=== PATIENT | male | born 1960 | race Caucasian/White ===

== ENCOUNTER 2016-08-20 04:39 | Emergency (ER) | payer OTHER ==
[~2016-08-20] VITALS: Ht 188 cm; Wt 74.8 kg
[~2016-08-20 04:39] MED LIST: ATENOLOL 25 MG25 M1 PO; COZAAR 50 MG TA50 M2 PO; CYCLOSPORINE PO; MYCOPHENOLATE500 MG PO; PREDNISONE 5 MG5 M1 PO; ZANTAC 150MG T150 MG PO
[2016-08-20] MEDS ORDERED: ZYRTEC10 M5 PO (04:50)
[2016-08-20 05:06] LABS: ABSOLUTE NEUTROPHILS 6.7 thou/uL (1.4-8.2); BASOPHILS 0.7 % (0.0-2.0); EOSINOPHILS 0.4 % (0.0-3.0); HEMATOCRIT 31.9 % (42.0-52.0); HEMOGLOBIN 11.1 gm/dL (14.0-18.0); LYMPHOCYTES 12.4 % (24.0-44.0); MCH 30.9 pg (26.0-34.0); MCHC 34.9 g/dL (28.0-37.0); MCV 88.5 fL (80.0-100.0); MONOCYTES 6.8 % (1.0-8.0); PLATELET COUNT 177 thou/uL (150-400); POLYS 79.7 % (36.0-66.0); RDW 13.3 % (10.5-14.5); WBC 8.4 thou/uL (4.0-11.0)
[2016-08-20 05:11] LABS: MANUAL DIFF NO
[2016-08-20 05:15] LABS: CALCIUM 9.6 mg/dL (8.5-10.1); CREATININE 1.5 mg/dL (0.7-1.3); POTASSIUM 4.5 mmol/L (3.5-5.1)
[2016-08-20 05:20] LABS: ALBUMIN 4.3 g/dL (3.4-5.0); TOTAL BILIRUBIN 1.2 mg/dL (<0.1-1.0); TOTAL PROTEIN 7.4 g/dL (6.4-8.2)
[2016-08-20 06:00] VITALS: BP 133/79
[2016-08-20] MEDS ORDERED: BUTALB-APAP-CA1 EACH PO (06:05)
[2016-08-20] MEDS ORDERED: ZOFRAN ODT4 MG PO (06:05)
== END 2016-08-20 07:19 | disposition home or self-care (01) ==
LOC: ER 04:39
PROVIDERS: Emergency Medicine
DX: G43.909 Migraine, unspecified, not intractable, without status migrainosus (principal); I11.0 Hypertensive heart disease with heart failure; I50.9 Heart failure, unspecified; Z99.2 Dependence on renal dialysis; Z88.0 Allergy status to penicillin; Z94.0 Kidney transplant status